=== PATIENT | female | born 1950 | race Caucasian/White ===

== ENCOUNTER → 2019-07-14 | Outpatient (CLI) | payer MEDICARE ==
[~2019-07-14] MED LIST: ASPI-555 PO; CALC-24 PO; CELE100 PO; CITA-107 PO; DOCU100T PO; EVE1000C3 PO; EZET1TAB21 PO; FLAX100030 PO; LISI10TA7 PO; LORA10TA7 PO; METO-391 PO; NITR0.4T50 SL; OMEP40CA37 PO; TRAM50TA4 PO
== END | disposition home or self-care (01) ==
LOC: RAH 09:26
PROVIDERS: ATTEND Family Medicine
DX: Z12.31 Encounter for screening mammogram for malignant neoplasm of breast (principal)
CPT/HCPCS: 77067

== ENCOUNTER → 2020-07-15 | Outpatient (CLI) | payer MEDICARE ==
[~2020-07-15] MED LIST changes: -ASPI-555 PO; +ASPI-556 PO; +OMEP40CA13 PO; -OMEP40CA37 PO
== END | disposition home or self-care (01) ==
LOC: SHCH 07:49
PROVIDERS: ATTEND Internal Medicine Cardiovascular Disease
DX: I71.4 Abdominal aortic aneurysm, without rupture (principal)
CPT/HCPCS: 93978

== ENCOUNTER → 2020-07-19 | Outpatient (CLI) | payer MEDICARE | END | disposition home or self-care (01) | LOC: RAH 10:32 | PROVIDERS: ATTEND Family Medicine | DX: Z12.31 Encounter for screening mammogram for malignant neoplasm of breast (principal); N63.20 Unspecified lump in the left breast, unspecified quadrant; N63.10 Unspecified lump in the right breast, unspecified quadrant; N64.89 Other specified disorders of breast | CPT/HCPCS: 77067 ==

== ENCOUNTER → 2022-09-08 | Outpatient (CLI) | payer MEDICARE ==
[~2022-09-08] MED LIST changes: +EZET-82 PO; -EZET1TAB21 PO; +LISI10TA24 PO; -LISI10TA7 PO; -OMEP40CA13 PO; +OMEP40CA21 PO
== END | disposition home or self-care (01) ==
LOC: RAH 10:34
PROVIDERS: ATTEND Family Medicine
DX: Z12.31 Encounter for screening mammogram for malignant neoplasm of breast (principal)
CPT/HCPCS: 77067

== ENCOUNTER → 2023-09-20 | Outpatient (CLI) | payer MEDICARE | END | disposition home or self-care (01) | LOC: RAH 09:42 | PROVIDERS: ATTEND Family Medicine | DX: Z12.31 Encounter for screening mammogram for malignant neoplasm of breast (principal) | CPT/HCPCS: 77067 ==

== ENCOUNTER 2024-06-05 08:44 | Observation (INO) | payer MEDICARE ==
[2024-06-02 12:47] LABS: BASOPHILS # (AUTO) 0.01 K/uL (0.00-0.20); BASOPHILS % (AUTO) 0.1 % (0.0-5.0); EOSINOPHILS # (AUTO) 0.05 K/uL (0.00-0.70); EOSINOPHILS % (AUTO) 0.7 % (0.0-8.0); HEMATOCRIT 39.8 % (36-48); IMMATURE GRANULOCYTE ABSOLUTE 0.02 K/uL (0-1); LYMPHOCYTES # (AUTO) 1.7 K/uL (1.0-4.8); LYMPHOCYTES % (AUTO) 24.9 % (21.0-51.0); MEAN CORPUSCULAR HEMOGLOBIN 32.6 pg (27.0-33.0); MEAN CORPUSCULAR HGB CONC 32.7 g/dL (32.0-36.0); MEAN CORPUSCULAR VOLUME 99.7 fL (79-99); MONOCYTES # (AUTO) 0.5 K/uL (0.1-1.0); MONOCYTES % (AUTO) 8.1 % (3.0-13.0); NEUTROPHILS # (AUTO) 4.4 K/uL (1.8-7.7); NEUTROPHILS % (AUTO) 65.9 % (40.0-77.0); PLATELET COUNT (AUTO) 214 K/uL (130-400); RED BLOOD CELL COUNT(AUTO) 3.99 MIL/uL (4.00-5.50); RED CELL DISTRIBUTION WIDTH 13.3 % (11.0-15.5); WHITE BLOOD COUNT (AUTO) 6.7 K/uL (4.8-10.8)
[2024-06-02 12:58] VITALS: BP 120/72; PULSE 63; RESP 17
[2024-06-02 13:02] LABS: CREATININE 0.7 mg/dL (0.5-1.0); POTASSIUM 4.5 mmol/L (3.5-5.1)
[~2024-06-05] VITALS: Ht 160 cm; Wt 80.8 kg
[2024-06-05] VITALS (24 sets, daily range): BP systolic 103–146; BP diastolic 56–78; PULSE 69–82; RESP 14–20
[~2024-06-05 08:44] MED LIST changes: +ATOR40TA69 PO; -CELE100 PO; +CHOL200079 PO; +DILT240T13 PO; -EZET-82 PO; +FLUT16H NASAL; -LISI10TA24 PO; -LORA10TA7 PO; +LOSA25TA41 PO; -METO-391 PO; -TRAM50TA4 PO; +TURM500C4 PO
[2024-06-05] MEDS: LACTATED RINGERS 1000ML 1,000 ML IV ONE (10:21)
[2024-06-05] MEDS: CEFAZOLIN SODIUM 2 GM VIAL ONE (10:21)
[2024-06-05] MEDS: MORPHINE 4 MG SYG ONE (12:46)
[2024-06-05] MEDS: ACETAMINOPHEN 1,000 MG/100 ML VIAL IV ONE (12:46)
[2024-06-05] MEDS: FAMOTIDINE 20MG VIAL IV ONE (12:47)
[2024-06-05] MEDS ORDERED: MIDAZOLAM HCL 1 MG/ML 2ML VIAL ONE (12:48)
[2024-06-05] MEDS ORDERED: FENTANYL CITRATE PF 50 MCG/1 ML 2ML VIAL ONE (12:49)
[2024-06-05] MEDS ORDERED: PROPOFOL 10 MG/ML 20ML VIAL IV ONE (12:49)
[2024-06-05] MEDS ORDERED: SUCCINYLCHOLINE CHLORIDE 20 MG/ML 10 ML VIAL ONE (12:49)
[2024-06-05] MEDS ORDERED: ROCURONIUM BROMIDE 10MG/1ML 5ML VL ONE (12:50)
[2024-06-05] MEDS ORDERED: DEXAMETHASONE SOD PHOSPHATE 4 MG/ML 1ML VIAL ONE (12:59)
[2024-06-05] MEDS ORDERED: ONDANSETRON 4MG INJ ONE (12:59)
[2024-06-05] MEDS: BUPIVACAINE/PF 0.25% 30ML VIAL IJ ONE (13:25)
[2024-06-05] MEDS ORDERED: GLYCOPYRROLATE 0.2 MG/ML 5 ML VIAL ONE (13:28)
[2024-06-05] MEDS ORDERED: ONDANSETRON 4MG INJ IVP PRN (15:00)
[2024-06-05] MEDS ORDERED: PROCHLORPERAZINE 10MG/2ML INJ IV PRN (15:00)
[2024-06-05] MEDS: FENTANYL CITRATE PF 50 MCG/1 ML 2ML VIAL ONE (15:14)
[2024-06-05] MEDS: HYDROMORPHONE 1 MG INJ IVP PRN (17:12)
[2024-06-05] MEDS: ENOXAPARIN SODIUM 30 MG/0.3 ML SQ SCH (17:13)
[2024-06-05] MEDS: LACTATED RINGERS 1000ML 1,000 ML IV SCH (17:14)
[2024-06-05] MEDS: FAMOTIDINE 20MG VIAL IV SCH (20:48)
[2024-06-06] MEDS: KETOROLAC 30MG VIAL (30MG/ML) IV PRN (01:18)
[2024-06-06 04:00] VITALS: BP 148/79; PULSE 73; RESP 20
[2024-06-06 08:00] VITALS: BP 141/80; PULSE 66; RESP 17
[2024-06-06] MEDS: HYDROCODONE/ACETAMINOPHEN 7.5/325 MG 15 ML UDCUP PO PRN (08:19)
== END 2024-06-06 11:58 | disposition still patient (30) ==
LOC: DAH 08:44 → DAHIP 08:45 → DAH 08:45 → INTOOBSV 08:45 → 3BH 16:30
PROVIDERS: ADMIT Surgery; ATTEND Surgery
DX: K44.0 Diaphragmatic hernia with obstruction, without gangrene (principal); K21.9 Gastro-esophageal reflux disease without esophagitis; I10 Essential (primary) hypertension; E78.5 Hyperlipidemia, unspecified; I25.10 Atherosclerotic heart disease of native coronary artery without angina pectoris; M19.90 Unspecified osteoarthritis, unspecified site; R73.03 Prediabetes; Z79.82 Long term (current) use of aspirin; Z79.899 Other long term (current) drug therapy
CPT/HCPCS: 80048 ×2; 85025 ×2; 86850 ×3; 86900 ×3; 86901 ×3; 36415 ×3; 93005 ×2; 96374; 96376 ×2; 96372 ×2; 96375 ×2; 43282; J1100; G0378 ×24; G0379; A4600; A6260; A4663; J7120 ×2; A4215 ×2; J3490 ×5; J3010 ×2; J1170 ×2; J0330; J0665; J1650 ×2; J2250; J2704; J2405; J2270; J0690; G0168; C1781; A4930 ×2; A4223; A4222; A4221; J1885; 43235

== ENCOUNTER 2024-06-21 05:01 | Inpatient (IN) | payer MEDICARE ==
[2024-06-21] VITALS (7 sets, daily range): BP systolic 136–147; BP diastolic 70–80; PULSE 67–82; RESP 17–19; O2SAT 95–96
[~2024-06-21] VITALS: Ht 160 cm; Wt 80.4 kg
[~2024-06-21 05:01] MED LIST changes: -OMEP40CA21 PO
[2024-06-21] MEDS: ONDANSETRON 4MG INJ IVP ONE (05:39)
[2024-06-21] MEDS: MORPHINE 2 MG SYG IVP ONE ×2 (05:39→06:20)
[2024-06-21] MEDS: LIDOCAINE HCL 2% VISCOUS 15 ML UDCUP PO ONE (05:40)
[2024-06-21 05:43] LABS: BASOPHILS # (AUTO) 0.03 K/uL (0.00-0.20); BASOPHILS % (AUTO) 0.2 % (0.0-5.0); EOSINOPHILS # (AUTO) 0.06 K/uL (0.00-0.70); EOSINOPHILS % (AUTO) 0.4 % (0.0-8.0); HEMATOCRIT 36.4 % (36-48); IMMATURE GRANULOCYTE ABSOLUTE 0.04 K/uL (0-1); LYMPHOCYTES # (AUTO) 1.6 K/uL (1.0-4.8); LYMPHOCYTES % (AUTO) 11.4 % (21.0-51.0); MEAN CORPUSCULAR HEMOGLOBIN 32.3 pg (27.0-33.0); MEAN CORPUSCULAR VOLUME 97.8 fL (79-99); MONOCYTES # (AUTO) 0.9 K/uL (0.1-1.0); MONOCYTES % (AUTO) 6.3 % (3.0-13.0); NEUTROPHILS # (AUTO) 11.5 K/uL (1.8-7.7); NEUTROPHILS % (AUTO) 81.4 % (40.0-77.0); PLATELET COUNT (AUTO) 302 K/uL (130-400); RED BLOOD CELL COUNT(AUTO) 3.72 MIL/uL (4.00-5.50); RED CELL DISTRIBUTION WIDTH 13.2 % (11.0-15.5); WHITE BLOOD COUNT (AUTO) 14.1 K/uL (4.8-10.8)
[2024-06-21] MEDS: MORPHINE 2 MG SYG ONE (05:44)
[2024-06-21] MEDS: ONDANSETRON 4MG INJ ONE (05:44)
[2024-06-21] MEDS: MAG/ALUM/SIMETH 30 ML UDCUP PO ONE (05:45)
[2024-06-21] MEDS: MAG/ALUM/SIMETH 30 ML UDCUP ONE (05:47)
[2024-06-21 05:49] LABS: CREATININE 0.7 mg/dL (0.5-1.0); POTASSIUM 4.2 mmol/L (3.5-5.1)
[2024-06-21 05:53] LABS: ALBUMIN 3.2 g/dL (3.5-5.0); MAGNESIUM 1.7 mg/dL (1.80-2.40)
[2024-06-21] MEDS: 0.9%NACL 1000ML 1,000 ML IV SCH (06:19)
[2024-06-21] MEDS: 0.9% NACL 500ML IV.SOLN 500 ML IV SCH (06:19)
[2024-06-21] MEDS: KETOROLAC 15MG/ML VIAL (15MG/ML) IV ONE (06:20)
[2024-06-21] MEDS ORDERED: IOHEXOL-350 75 ML VIAL IV ONE (06:59)
[2024-06-21] MEDS ORDERED: WHEA1TAB7 PO (07:37)
[2024-06-21] MEDS ORDERED: ONDANSETRON 4MG INJ IVP PRN ×2 (08:00→10:30)
[2024-06-21] MEDS ORDERED: ACETAMINOPHEN 325 MG TAB PO PRN (08:00)
[2024-06-21] MEDS: ZOSYN 3.375GM +NS 50ML IV SCH (08:19)
[2024-06-21] MEDS: MORPHINE 2 MG SYG IVP PRN (08:52)
[2024-06-21] MEDS: FAMOTIDINE 20MG VIAL IV SCH (08:52)
[2024-06-21 09:16] LABS: CHOLESTEROL 105 mg/dL (<200); HDL CHOLESTEROL 44 mg/dL (35-85); LDL DIRECT 55 mg/dL (0-99); TRIGLYCERIDES 68 mg/dL (30-200)
[2024-06-21 09:23] LABS: ADD UA MICROSCOPIC YES; APPEARANCE,URINE CLEAR (CLEAR); BILIRUBIN,URINE NEGATIVE (NEGATIVE); COLOR,URINE YELLOW (YELLOW); GLUCOSE, URINE (UA) NEGATIVE (NEGATIVE); KETONES,URINE NEGATIVE (NEGATIVE); LEUKOCYTE ESTERASE ,URINE NEGATIVE Leu/uL (NEGATIVE); NITRATE,URINE NEGATIVE (NEGATIVE); OCCULT BLOOD,URINE NEGATIVE (NEGATIVE); PH,URINE 7.5 (5.0-8.0); PROTEIN,URINE 20 mg/dL (NEGATIVE)
[2024-06-21 09:26] LABS: BACTERIA,URINE RARE /HPF (None Seen); MUCUS,URINE RARE LPF (None Seen); SQUAMOUS EPITHELIAL CELL,UR MOD /HPF (0-2)
[2024-06-21] MEDS: HYDROMORPHONE 0.5 MG SYG (0.5MG/0.5ML) IVP PRN (14:14)
[2024-06-21] MEDS: KETOROLAC 15MG/ML VIAL (15MG/ML) IV PRN (23:42)
[2024-06-22 03:00] VITALS: BP 133/78; PULSE 88; RESP 16
[2024-06-22 05:21] LABS: BASOPHILS # (AUTO) 0.01 K/uL (0.00-0.20); BASOPHILS % (AUTO) 0.1 % (0.0-5.0); HEMATOCRIT 35.3 % (36-48); IMMATURE GRANULOCYTE ABSOLUTE 0.07 K/uL (0-1); LYMPHOCYTES % (AUTO) 7.4 % (21.0-51.0); MEAN CORPUSCULAR HEMOGLOBIN 32.4 pg (27.0-33.0); MEAN CORPUSCULAR VOLUME 101.1 fL (79-99); MONOCYTES # (AUTO) 0.6 K/uL (0.1-1.0); MONOCYTES % (AUTO) 4.5 % (3.0-13.0); NEUTROPHILS # (AUTO) 12.3 K/uL (1.8-7.7); NEUTROPHILS % (AUTO) 87.5 % (40.0-77.0); PLATELET COUNT (AUTO) 248 K/uL (130-400); RED BLOOD CELL COUNT(AUTO) 3.49 MIL/uL (4.00-5.50); RED CELL DISTRIBUTION WIDTH 13.4 % (11.0-15.5)
[2024-06-22 05:33] LABS: ALBUMIN 2.6 g/dL (3.5-5.0); BILIRUBIN,TOTAL 1.8 mg/dL (0.2-1.0); CREATININE 0.6 mg/dL (0.5-1.0); MAGNESIUM 1.8 mg/dL (1.80-2.40); POTASSIUM 4.3 mmol/L (3.5-5.1); TOTAL PROTEIN, SERUM 6.1 g/dL (6.0-8.3)
[2024-06-22 07:54] VITALS: BP 138/73; PULSE 82; RESP 18
[2024-06-22 08:00] VITALS: O2SAT 98
[2024-06-22 12:08] VITALS: BP 136/84; PULSE 66; RESP 18
[2024-06-22 15:35] VITALS: BP 149/76; PULSE 71; RESP 18
[2024-06-22 20:00] VITALS: BP 162/80; PULSE 69; RESP 18; O2SAT 94
[2024-06-22] MEDS: FLUTICASONE PROPIONATE 50MCG/SPRAY 16 GM BOTTLE NS SCH (20:48)
[2024-06-23] VITALS (28 sets, daily range): BP systolic 125–169; BP diastolic 65–97; PULSE 57–90; RESP 14–19; O2SAT 96
[2024-06-23 04:53] LABS: BASOPHILS # (AUTO) 0.01 K/uL (0.00-0.20); BASOPHILS % (AUTO) 0.1 % (0.0-5.0); EOSINOPHILS # (AUTO) 0.03 K/uL (0.00-0.70); EOSINOPHILS % (AUTO) 0.3 % (0.0-8.0); HEMATOCRIT 32.8 % (36-48); IMMATURE GRANULOCYTE ABSOLUTE 0.05 K/uL (0-1); LYMPHOCYTES # (AUTO) 0.9 K/uL (1.0-4.8); LYMPHOCYTES % (AUTO) 7.7 % (21.0-51.0); MEAN CORPUSCULAR HEMOGLOBIN 32.8 pg (27.0-33.0); MEAN CORPUSCULAR HGB CONC 32.9 g/dL (32.0-36.0); MEAN CORPUSCULAR VOLUME 99.7 fL (79-99); MONOCYTES # (AUTO) 0.6 K/uL (0.1-1.0); MONOCYTES % (AUTO) 5.4 % (3.0-13.0); NEUTROPHILS # (AUTO) 9.7 K/uL (1.8-7.7); NEUTROPHILS % (AUTO) 86.1 % (40.0-77.0); PLATELET COUNT (AUTO) 206 K/uL (130-400); RED BLOOD CELL COUNT(AUTO) 3.29 MIL/uL (4.00-5.50); RED CELL DISTRIBUTION WIDTH 13.2 % (11.0-15.5); WHITE BLOOD COUNT (AUTO) 11.2 K/uL (4.8-10.8)
[2024-06-23 05:26] LABS: ALBUMIN 2.5 g/dL (3.5-5.0); BILIRUBIN,TOTAL 1.1 mg/dL (0.2-1.0); CREATININE 0.5 mg/dL (0.5-1.0); MAGNESIUM 1.7 mg/dL (1.80-2.40); POTASSIUM 3.2 mmol/L (3.5-5.1); TOTAL PROTEIN, SERUM 6.1 g/dL (6.0-8.3)
[2024-06-23] MEDS: MAGNESIUM 2GM PREMIX 50ML 50 ML IV ONE (08:40)
[2024-06-23] MEDS: POTASSIUM CHLORIDE 20MEQ/100ML 100 ML IV ONE (08:40)
[2024-06-23] MEDS ORDERED: MAGNESIUM 2GM PREMIX 50ML 50 ML IV PRN (09:00)
[2024-06-23] MEDS ORDERED: POTASSIUM CHLORIDE 20MEQ/100ML 100 ML IV PRN (09:00)
[2024-06-23] MEDS: DEXTROSE 50%-WATER 50 ML DISP.SYRIN IV ONE (11:28)
[2024-06-23] MEDS ORDERED: GLYCOPYRROLATE 0.2 MG/ML 5 ML VIAL ONE (12:38)
[2024-06-23] MEDS ORDERED: PROPOFOL 10 MG/ML 20ML VIAL IV ONE ×2 (12:38→12:50)
[2024-06-23] MEDS: KCL 20 MEQ ERTAB PO ONE ×2 (15:19→17:44)
[2024-06-24] VITALS: BP 148/73; PULSE 66; RESP 17
[2024-06-24 04:00] VITALS: BP 153/70; PULSE 67; RESP 17
[2024-06-24 06:17] LABS: BASOPHILS # (AUTO) 0.01 K/uL (0.00-0.20); BASOPHILS % (AUTO) 0.1 % (0.0-5.0); EOSINOPHILS # (AUTO) 0.15 K/uL (0.00-0.70); HEMATOCRIT 33.9 % (36-48); IMMATURE GRANULOCYTE ABSOLUTE 0.03 K/uL (0-1); LYMPHOCYTES # (AUTO) 1.2 K/uL (1.0-4.8); LYMPHOCYTES % (AUTO) 16.4 % (21.0-51.0); MEAN CORPUSCULAR HGB CONC 33.3 g/dL (32.0-36.0); MEAN CORPUSCULAR VOLUME 99.1 fL (79-99); MONOCYTES # (AUTO) 0.6 K/uL (0.1-1.0); MONOCYTES % (AUTO) 7.4 % (3.0-13.0); NEUTROPHILS # (AUTO) 5.4 K/uL (1.8-7.7); NEUTROPHILS % (AUTO) 73.7 % (40.0-77.0); PLATELET COUNT (AUTO) 204 K/uL (130-400); RED BLOOD CELL COUNT(AUTO) 3.42 MIL/uL (4.00-5.50); WHITE BLOOD COUNT (AUTO) 7.4 K/uL (4.8-10.8)
[2024-06-24 06:34] LABS: ALBUMIN 2.5 g/dL (3.5-5.0); CREATININE 0.5 mg/dL (0.5-1.0); MAGNESIUM 2.1 mg/dL (1.80-2.40)
[2024-06-24 07:00] LABS: BILIRUBIN,TOTAL 1.1 mg/dL (0.2-1.0); POTASSIUM 3.7 mmol/L (3.5-5.1); TOTAL PROTEIN, SERUM 6.3 g/dL (6.0-8.3)
[2024-06-24 07:55] VITALS: O2SAT 97
[2024-06-24 08:00] VITALS: BP 157/76; PULSE 66; RESP 18
[2024-06-24] MEDS: KCL 20 MEQ ERTAB PO ONE (08:05)
[2024-06-24] MEDS: LACTULOSE 20 GM/30 ML UDCUP PO PRN (08:17)
[2024-06-24 12:00] VITALS: BP_SYST 101; BP_SYST 157; BP_DIAS 64; BP_DIAS 78; PULSE 68; PULSE 86; RESP 19
[2024-06-24] MEDS ORDERED: DOCU100C33 PO (22:22)
[2024-06-24] MEDS ORDERED: FAMO40TA7 PO (22:22)
== END 2024-06-24 13:50 | disposition home or self-care (01) | DRG 439 ==
LOC: EDH 05:01 → EDHIP 07:03 → 3BH 08:35
PROVIDERS: ADMIT Hospitalist; ATTEND Hospitalist
PROC: 0FJB8ZZ Inspection of Hepatobiliary Duct, Via Natural or Artificial Opening Endoscopic (ICD-10-PCS; principal; 2024-06-23)
PROC: 0FJ Hepatobiliary System and Pancreas, Inspection (ICD-10-PCS; 2024-06-23)
DX: K85.90 Acute pancreatitis without necrosis or infection, unspecified (principal); E44.1 Mild protein-calorie malnutrition; E83.42 Hypomagnesemia; E11.9 Type 2 diabetes mellitus without complications; E78.00 Pure hypercholesterolemia, unspecified; I10 Essential (primary) hypertension; I25.10 Atherosclerotic heart disease of native coronary artery without angina pectoris; K21.9 Gastro-esophageal reflux disease without esophagitis; K29.80 Duodenitis without bleeding; K44.9 Diaphragmatic hernia without obstruction or gangrene; F32.A Depression, unspecified; K83.8 Other specified diseases of biliary tract; Z68.31 Body mass index [BMI] 31.0-31.9, adult
CPT/HCPCS: 36415; 43237; 71045; 74177; 74181; 76705; 80053; 80061; 81001; 82948; 83690; 83735; 83880; 84484; 85025; 93005; 96374; 96375; G0378; J1170; J1885; J2270; J2405; J2543; J2704; J3475; J3480; J3490; J7030; J7070; Q9967; A4215; A4222; A4223; A4620; S8037

== ENCOUNTER → 2024-10-03 | Outpatient (CLI) | payer MEDICARE ==
[~2024-10-03] MED LIST changes: -ASPI-556 PO; -CALC-24 PO; +DOCU100C33 PO; -DOCU100T PO; -EVE1000C3 PO; +FAMO40TA7 PO; -FLAX100030 PO; +LEVO750T68 PO; -NITR0.4T50 SL; +WHEA1TAB7 PO
--- NOTE | 2024-10-03 11:18 | HMCIMG ---
MAMMO SCREENING BILATERAL HISTORY: Screening mammogram. COMPARISON: 09/20/2023 TECHNIQUE: Bilateral screening mammogram with CAD was performed with craniocaudal and mediolateral oblique projections. FINDINGS: There are scattered areas of fibroglandular density. Dystrophic calcifications are seen in both breasts. There is no evidence of a dominant mass, or suspicious microcalcification. There is no evidence of nipple retraction or skin thickening. IMPRESSION: 1. Stable mammogram. Patient was entered into a reminder system with a target due date for their next mammogram. BI-RADS: CATEGORY 2: BENIGN FINDINGS Recommend monthly self breast exam as well as annual clinical examination. A negative x-ray should not delay biopsy if a dominant or clinically suspicious mass is present, since 8-10% of cancers are not identified by mammography. Dense breasts particularly, may obscure an underlying neoplasm. Some of these may be detected clinically and therefore, clinical examination is an essential part of breast evaluation.
== END | disposition home or self-care (01) ==
LOC: RAH 10:32
PROVIDERS: ATTEND Family Medicine
DX: Z12.31 Encounter for screening mammogram for malignant neoplasm of breast (principal); R92.323 Mammographic fibroglandular density, bilateral breasts
CPT/HCPCS: 77067

== ENCOUNTER 2025-01-01 06:07 | Day surgery (SDC) | payer MEDICARE ==
[~2025-01-01] VITALS: Ht 160 cm; Wt 74.8 kg
[2025-01-01] VITALS (11 sets, daily range): BP systolic 103–133; BP diastolic 55–65; PULSE 57–75; RESP 16–19; TEMP 97.5–98.1
[~2025-01-01 06:07] MED LIST changes: +ASPI-1005 PO; +BIFI4CAP2 PO; +CALC-322 PO; +CELE-146 PO; +FLAX1CAP3 PO; -LEVO750T68 PO; +OMEP40CA21 PO; -TURM500C4 PO
[2025-01-01] MEDS: 0.9%NACL 1000ML 1,000 ML IV ONE (07:32)
[2025-01-01] MEDS ORDERED: proPOFol 10 MG/ML 20ML VIAL IV ONE (08:35)
--- NOTE | 2025-01-01 10:13 | NUR ---
FULL AND COMPLETE DISCHARGE INSTRUCTIONS GIVEN TO PATIENT AND FAMILY BOTH VERBALLY AND IN WRITING. VOICED UNDERSTANDING TO GI PROCEDURE PRECAUTIONS AND FOLLOW UP PIV REMOVED WITH CATHETER TIP INTACT. W/C WITH FAMILY TO POV TO HOME.
== END 2025-01-01 10:10 | disposition home or self-care (01) ==
LOC: DAH 06:07
PROVIDERS: ATTEND Surgery
DX: K21.9 Gastro-esophageal reflux disease without esophagitis (principal); K44.9 Diaphragmatic hernia without obstruction or gangrene; K31.89 Other diseases of stomach and duodenum; R93.2 Abnormal findings on diagnostic imaging of liver and biliary tract; K22.89 Other specified disease of esophagus; I10 Essential (primary) hypertension; M19.90 Unspecified osteoarthritis, unspecified site; E78.5 Hyperlipidemia, unspecified; Z79.82 Long term (current) use of aspirin; Z79.899 Other long term (current) drug therapy; Z98.49 Cataract extraction status, unspecified eye; Z98.890 Other specified postprocedural states
CPT/HCPCS: 43239; J7030 ×2; J2704; A4620; A4215; A4223; A7002; A4222; A4221; A4663; A4606; J3490

== ENCOUNTER → 2025-02-24 | Outpatient (CLI) | payer MEDICARE ==
[~2025-02-24] MED LIST changes: +NITR0.4T50 SL; +PRIMROSE PO
--- NOTE | 2025-02-24 10:09 | HMCIMG ---
DEXA BONE DENSITY SURVEY HISTORY: No additional history given. COMPARISON: None FINDINGS: Bone densitometry study was performed. Bone mineral density of the lumbar spine is 1.137 gram per centimeter square which corresponds to a T score of 0.8 and a Z score of 3.1. Bone mineral density of the left hip is 1.033 grams per centimeter square which corresponds to a T score of 0.7 and a Z score of 2.4. IMPRESSION: 1. Normal bone mineral density of the lumbar spine and left hip.
== END | disposition home or self-care (01) ==
LOC: RAH 08:47
PROVIDERS: ATTEND Family Medicine
DX: N95.9 Unspecified menopausal and perimenopausal disorder (principal)
CPT/HCPCS: 77080

== ENCOUNTER → 2025-05-04 | Outpatient (CLI) | payer MEDICARE ==
--- NOTE | 2025-05-04 14:00 | HMCIMG ---
Lumbar spine 2 views Comparison Study: none History: LUMBAR RADICULOPATHY Findings: Exam of the lumbosacral spine demonstrates no evidence of fracture or subluxation. There are moderate spondylitic changes. The facet joints show moderate degenerative changes. Severe rotatory dextroscoliosis. Degenerative disc disease L5-S1. The other disc spaces are intact. There is osteopenia. Impression: Spondylitic changes and degenerative changes of the apophyseal joints as noted.
== END | disposition home or self-care (01) ==
LOC: RAH 13:03
PROVIDERS: ATTEND Family Medicine
DX: M47.26 Other spondylosis with radiculopathy, lumbar region (principal); M51.16 Intervertebral disc disorders with radiculopathy, lumbar region; M53.3 Sacrococcygeal disorders, not elsewhere classified; M85.88 Other specified disorders of bone density and structure, other site; M41.86 Other forms of scoliosis, lumbar region
CPT/HCPCS: 72100

== ENCOUNTER → 2025-06-09 | Outpatient (CLI) | payer MEDICARE ==
--- NOTE | 2025-06-09 21:37 | HMCIMG ---
EXAM: MR Lumbar Spine Without Intravenous Contrast. CLINICAL HISTORY: Lumbar radiculopathy. TECHNIQUE: Magnetic resonance images of the lumbar spine in multiple planes. CONTRAST: None. COMPARISON: MRI dated 08/27/2015. FINDINGS: For this examination, spinal levels were labeled assuming five non-rib bearing, lumbar-type vertebrae with the inferior labeled L5. No acute fracture. Severe thoracolumbar dextroscoliosis. Multilevel spondylosis is evident by marginal osteophytes and facet joint arthropathy. Multilevel disc desiccation and degenerative disc height reduction noted, more pronounced at the L3-L4 level. Normal vertebral body heights. Modic type I changes in the contiguous endplates at the L3-L4 level. Conus medullaris terminates at the T12 level. No abnormal epidural masses. Tiny synovial cysts around the right L5-S1 facet joint. Two, small simple cortical cysts in the left kidney. Individual spinal levels are described as follows: T11-T12 /T/ T12-L1: 3 mm disc osteophyte complex bulge causing mild indentation on the anterior thecal sac. No neural foraminal, or lateral recess stenosis. L1-L2: 4 mm disc osteophyte complex bulge causing mild indentation on the anterior thecal sac. No neural foraminal, or lateral recess stenosis. L2-L3: 3 mm left predominant disc osteophyte complex bulge causing mild indentation on the anterior thecal sac. No neural foraminal, or lateral recess stenosis. L3-L4: 7 mm disc osteophyte complex bulge and facet joint arthropathy causing mild canal narrowing and mild to moderate bilateral foraminal narrowing. No lateral recess stenosis. L4-L5: 5 mm right predominant disc osteophyte complex bulge and facet joint arthropathy causing mild indentation on the anterior thecal sac and moderate right foraminal narrowing. No lateral recess stenosis. L5-S1: 5 mm right predominant disc osteophyte complex bulge and facet joint arthropathy causing mild indentation on the anterior thecal sac, moderate right lateral recess narrowing with compression of the traversing right S1 nerve root, and moderate right foraminal narrowing. IMPRESSION: Severe thoracolumbar dextroscoliosis. Stable. Moderate multilevel spondylosis and degenerative disc changes. Stable. Modic type I changes in the contiguous endplates at the L3-L4 level. New finding. Mild indentation on the anterior thecal sac at the T11-T12, T12-L1, L1-L2, and L2-L3 levels. Stable. Mild canal narrowing and mild to moderate bilateral foraminal narrowing at the L3-L4 level. Mild interval improvement of the canal narrowing and mild interval worsening of the bilateral foraminal narrowing. Mild indentation on the anterior thecal sac and moderate right foraminal narrowing at the L4-L5 level. Stable. Mild indentation on the anterior thecal sac, moderate right lateral recess narrowing with compression of the traversing right S1 nerve root, and moderate right foraminal narrowing at the L5-S1 level. Right lateral recess narrowing with compression of the traversing right S1 nerve root is a new finding. Tiny synovial cysts around the right L5-S1 facet joint. /Umpire
== END | disposition home or self-care (01) ==
LOC: RAH 10:37
PROVIDERS: ATTEND Family Medicine
DX: M47.26 Other spondylosis with radiculopathy, lumbar region (principal); M51.35 Other intervertebral disc degeneration, thoracolumbar region; M51.16 Intervertebral disc disorders with radiculopathy, lumbar region; M51.379 Other intervertebral disc degeneration, lumbosacral region without mention of lumbar back pain or lower extremity pain; M41.85 Other forms of scoliosis, thoracolumbar region; M48.07 Spinal stenosis, lumbosacral region; M25.78 Osteophyte, vertebrae; M71.38 Other bursal cyst, other site; N28.1 Cyst of kidney, acquired
CPT/HCPCS: 72148

== ENCOUNTER → 2025-10-05 | Outpatient (CLI) | payer MEDICARE ==
--- NOTE | 2025-10-06 14:23 | HMCIMG ---
DIGITAL BILATERAL SCREENING MAMMOGRAM Technique: The digital mammographic examination of both breasts in craniocaudal and mediolateral oblique views along with CAD was obtained. History: This is a 75 years year-old female 0, para0 Ab0. Patient has no family history of breast cancer. Patient has no complaint Reference:Prior mammogram from 10/03/2024, 09/20/2023, 09/08/2022, 07/27/2021 and 07/19/2020 are available for comparison.. Breast composition: Breast composition C: The breasts are heterogeneously dense, which may obscure small masses. Finding: The digital mammographic examination of both breasts in craniocaudal and mediolateral oblique view along with CAD demonstrates both breasts to be moderately heterogeneously nodular dense breasts with multiple nodules severing sizes. There are multiple solitary macrocalcifications scattered throughout both breasts in these findings are unchanged.. There is no evidence of any dendritic mass, cluster microcalcification or architectural distortion. The retromammary fat appears to be normal. IMPRESSION: Due to multiple nodular densities seen throughout both breasts I would recommend a baseline bilateral breast sonogram.. FINAL ASSESSMENT: ACR: BI-RAD -0. Incomplete: need additional imaging evaluation. NOTE: IF A WORK-UP OF THIS PATIENT LEADS TO A BIOPSY, PLEASE FORWARD A COPY OF THE PATHOLOGY REPORT TO OUR OFFICE REQUIRED BY [employer]IVE AUGUST 26, 1994. A NEGATIVE MAMMOGRAM SHOULD NOT PRECLUDE BIOPSY OF A CLINICALLY PALPABLE SUSPICIOUS MASS, 10% OF BREAST CANCERS ARE MAMMOGRAPHICALLY OCCULT. THIS MAMMOGRAPHY FACILITY IS FULLY ACCREDITED BY THE [employer]OD AND [employer] (FDA). THANK YOU FOR THIS REFERRAL.
== END | disposition home or self-care (01) ==
LOC: RAH 10:10
PROVIDERS: ATTEND Family Medicine
DX: Z12.31 Encounter for screening mammogram for malignant neoplasm of breast (principal); R92.333 Mammographic heterogeneous density, bilateral breasts; R92.1 Mammographic calcification found on diagnostic imaging of breast; N63.10 Unspecified lump in the right breast, unspecified quadrant; N63.20 Unspecified lump in the left breast, unspecified quadrant
CPT/HCPCS: 77067

== ENCOUNTER → 2025-11-02 | Outpatient (CLI) | payer MEDICARE ==
--- NOTE | 2025-11-11 09:01 | HMCIMG ---
BILATERAL BREAST ULTRASOUND: CLINICAL HISTORY: follow-up for mammogram with nodular density seen in both breasts from 10/05/2025. Finding: Real-time examination of the both breasts demonstrates homogeneous echotexture throughout both the breasts demonstrated multiple calcifications of varying sizes the largest on the left is at 11:00 measuring 0.8 x 0.3 x 0.8 cm. The largest on the right measuring 0.9 x 0.9 x 1.1 cm. IMPRESSION: Multiple calcifications seen in both breasts with no nodule identified. I would recommend annual mammography with tomography with bilateral breast sonogram. FINAL ASSESSMENT: ACR: BI-RAD- 2. Benign Finding.
== END | disposition home or self-care (01) ==
LOC: RAH 14:46
PROVIDERS: ATTEND Family Medicine
DX: R92.333 Mammographic heterogeneous density, bilateral breasts (principal)